=== PATIENT | male | born 1960 | race Caucasian/White ===

== ENCOUNTER 2018-07-11 12:41 | Day surgery (SDC) | payer OTHER ==
--- NOTE | 2018-07-11 14:29 | NUR ---
07/11/18 1429 Any Jordan 1422 PT ARRIVED IN PACU WIDE AWAKE WITH NO C/O'S. 1425 OXYGEN DECREASED TO 1L VIA NC WITH SATS 99%.
--- NOTE | 2018-07-12 11:14 | OR ---
[facility] [address] [place], [place] [address] Signed DATE OF OPERATION: 07/11/2018 SURGEON: Kilo Banuelos MD PREOPERATIVE DIAGNOSIS: Colon screening, negative family history of colon cancer. POSTOPERATIVE DIAGNOSES: 1. Sigmoid diverticulosis. 2. Internal hemorrhoids. PROCEDURE PERFORMED: Total colonoscopy to cecum. ANESTHESIA: Intravenous sedation, fentanyl 150 mcg, and Versed 7 mg. 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 He is a patient of Lakeshia Horan. He is referred for screening colonoscopy. He has no symptoms of bleeding, diarrhea, or constipation. Has no family history of colon cancer. He was admitted at this time to undergo colonoscopy. He understands the risks of bleeding, infection, and perforation. FINDINGS: The prep was quite good. Complete colonoscopy was undertaken to the cecum without question. The ileocecal valve and appendiceal orifice were normal. There was no evidence of polyps. He did have diverticular change of the sigmoid. Retroflexed view of the rectum confirmed internal hemorrhoids. There were no other findings. DESCRIPTION OF PROCEDURE: The patient was brought to the endoscopy suite and placed in lateral decubitus position and given intravenous sedation to the point of slurred speech and nystagmus. Digital rectal examination was normal. An Olympus video colonoscope was passed in the rectum and manipulated throughout the colon, ultimately intubating the cecum itself. The ileocecal valve and appendiceal orifice were normal. The scope was withdrawn from that point and careful inspection upon withdrawal of scope showed no sign of polyps, he did confirm some diverticular change of the sigmoid. Retroflexed view of the rectum confirmed internal hemorrhoidal Electronically Signed By: KILO BANUELOS MD 07/12/18 1114 PATIENT NAME: KILO WALKER OPERATIVE REPORT DATE OF : 58 REPORT #: [id number] PHYSICIAN: KILO BANUELOS MD PCP: LAKESHIA HORAN REPORT IS CONFIDENTIAL AND NOT TO BE RELEASED WITHOUT AUTHORIZATION [address] [address] Signed changes. No sign of active problem at this time, however. Scope was straightened withdrawn and removed. The patient was taken to recovery in good condition. CONCLUDING DIAGNOSES: 1. Internal hemorrhoids. 2. Diverticular change of sigmoid. PLAN: Recommend repeat colonoscopy in 10 years, also recommend high-fiber diet or fiber supplement such as Citrucel one tablespoon p.o. daily. He will return to the ongoing care of Lakeshia Horan PA-C. Repeat colonoscopy in 10 years sooner if clinically indicated would be recommended as well. If he has rectal bleeding, consideration will be made for internal hemorrhoidal banding in the office setting. MD GIBSON Monteiro/ELSIE /[id number] cc: Lakeshia Horan PA-C Copies: LAKESHIA HORAN ~ Electronically Signed By: KILO BANUELOS MD 07/12/18 1114 PATIENT NAME: KILO WALKER OPERATIVE REPORT DATE OF : 58 REPORT #: [id number] PHYSICIAN: KILO BANUELOS MD PCP: LAKESHIA HORAN PAC REPORT IS CONFIDENTIAL AND NOT TO BE RELEASED WITHOUT AUTHORIZATION
== END 2018-07-11 14:55 | disposition home or self-care (01) ==
LOC: OPS 12:41 → DS 14:00 → OPS 14:00
PROVIDERS: Surgery
PROC: 0DJD8ZZ Inspection of Lower Intestinal Tract, Via Natural or Artificial Opening Endoscopic (ICD-10-PCS; principal; 2018-07-11 14:00)
DX: Z12.11 Encounter for screening for malignant neoplasm of colon (principal); K64.8 Other hemorrhoids; K57.30 Diverticulosis of large intestine without perforation or abscess without bleeding
CPT/HCPCS: 99153; G0500; J2250; J3010; J7120

== ENCOUNTER 2025-06-15 07:42 | Emergency (ER) | payer MEDICARE ==
[~2025-06-15] VITALS: Ht 182.9 cm; Wt 91.4 kg
[~2025-06-15 07:42] MED LIST: ACETAMINOPHEN500 MG PO; HYDROMORPHONE HC4 MG PO; IBUPROFEN600 MG PO
[2025-06-15 08:13] LABS: BASOPHILS 0.3 % (0.2-1.2); EOSINOPHILS 0.7 % (0.8-7.0); LYMPHOCYTES 10.7 % (21.8-53.1); MCH 30.4 PG (25.7-32.2); MCHC 34.5 g/dL (32.3-36.5); MCV 88.1 fL (79.0-92.2); MONOCYTES 6.2 % (5.3-12.2); NEUTROPHILS 81.5 % (34.0-67.9); RBC 4.94 M/uL (4.63-6.08)
[2025-06-15 08:29] LABS: ALT (SGPT) 83.0 U/L (14-59); AST (SGOT) 29.0 U/L (15-37); GLOMERULAR FILTRATION RATE,EST 85.0 mL/min (>60); PROTEIN, TOTAL 7.6 g/dL (6.4-8.2); UREA NITROGEN 10.0 mg/dL (7-18)
[2025-06-15] MEDS ORDERED: CIPROFLOXACIN500 MG PO (08:35)
[2025-06-15 08:57] LABS: BLOOD/HGB, URINE TRACE-I (Negative); KETONE, URINE NEGATIVE (Negative); LEUK ESTERASE, URINE NEGATIVE (negative); NITRITE, URINE NEGATIVE (negative)
[2025-06-15 09:04] LABS: BACTERIA, URINE NONE SEEN /hpf (negative); CASTS, URINE NONE SEEN \\lpf; CRYSTALS, URINE NONE SEEN (0-1+); EPITHELIAL CELLS, URINE NONE SEEN /lpf (0-1+); REFLEX CULTURE, URINE Yes (No)
[2025-06-15] MEDS ORDERED: FLOMAX0.4 MG PO (11:07)
[2025-06-15] MEDS ORDERED: LEVOFLOXACIN500 MG PO (11:07)
[2025-06-15 11:18] VITALS: BP 135/57
== END 2025-06-15 11:19 | disposition home or self-care (01) ==
LOC: ED 07:42
PROVIDERS: Emergency Medicine
DX: N41.0 Acute prostatitis (principal); Z79.2 Long term (current) use of antibiotics; Z88.2 Allergy status to sulfonamides
CPT/HCPCS: 36415; 74177; 80053; 81001; 83690; 85025; 87088; 99284-25; Q9967